=== PATIENT | male | born 1975 | race Two or more races ===

== ENCOUNTER 2025-04-26 21:40 | Emergency (ER) | payer SELFPAY ==
--- NOTE | ~2025-04-26 | XR_ITS ---
CLINICAL HISTORY: severe pain in right knee 4 view right knee Comparison: None provided Findings: No fractures or dislocations. No significant loss of joint space, osteophytes, or erosions. No joint effusion. No radiopaque foreign body. IMPRESSION: 1. No acute findings. This document has been electronically signed by: Ronaldo Macedo MD on 04/26/2025 22:59:08
[2025-04-26 21:43] VITALS: BP 197/116; PULSE 60; RESP 18; TEMP 37; O2SAT 98; BMI 64.9
[2025-04-26 22:19] VITALS: BP 179/96; PULSE 65; RESP 20; TEMP 37; O2SAT 97
--- NOTE | 2025-04-27 01:37 | ED_ITS ---
HPI - General Adult General Chief complaint: Extremity Problem Stated complaint: right knee pain Time Seen by Provider: 04/26/25 23:22 Source: patient Limitations: no limitations History of Present Illness ED Provider: Lisbet Gardner PA-C HPI narrative: 49-year-old male presents with acute on chronic right knee pain. Patient states he has been having worsening progressive pain over medial knee over the past se veral weeks. Denies inability to flex and extend, denies preceding trauma or overuse injury, no overlying redness warmth, swelling or fevers. Related Data Previous Rx's ?Medication ?Instructions ?Recorded meloxicam 15 mg tablet 15 mg PO DAILY #7 tabs 04/27 Allergies Allergy/AdvReac Type Severity Reaction Status Date / Time Penicillins AdvReac Rash Verified 04/26/25 21:43 Review of Systems Review of Systems: Yes all other systems are reviewed and are negative Constitutional: Constitutional: Denies fatigue and Denies fever(s) Musculoskeletal: Musculoskeletal: Denies arthralgias and Denies joint swelling Integumentary/Breasts: Skin/Breast: Denies erythema and Denies wounds Endocrine: Endocrine: Denies fatigue [facility] Past Medical History Attestation statement: The following information was validated with the patient. Social History Social History Unable to assess alcohol history related to: Unknown Use of substances other than those prescribed or required for medical reasons: Unknown Advance Directives: No Advance Directives Information Provided: Yes Physical Exam ED Vital Signs: Vital Signs - 24 hr 04/26/25 21:43 04/26/25 22:19 Temperature 98.6 F 98.6 F Pulse Rate 60 65 Respiratory Rate 18 20 Blood Pressure 197/116 H 179/96 H Pulse Oximetry 98 97 Oxygen Delivery Method Room Air Room Air BMI result Body Mass Index 64.9 Const Other: Alert Orientation/consciousness: patient oriented x3 Resp Effort & Inspection: normal respiratory effort Cardio Other: Normal peripheral perfusion Skin Other: Warm dry no rash Neuro General: patient oriented x3, gait normal, no focal motor deficits and CN's II- XI intact bilaterally Extrem Other: Patient ambulatory, he is able to flex and extend from the right knee there was no overlying erythema warmth or redness no swelling Psych Other: Cooperative Medications Administered Discontinued Medications Generic Name Dose Route Start Last Admin Trade Name Freq PRN Reason Stop Dose Admin Ketorolac Tromethamine 15 mg 04/27/25 00:48 04/27/25 00:55 Ketorolac Tromethamine 15 Mg/Ml Vial IM 04/27/25 00:49 15 mg ONCE ONE Administration Medical Decision Making Medical Decision Making MDM Narrative: 49-year-old male with a history of morbid obesity presents with acute on chronic right knee pain. Patient states he has been having worsening progressive pain over medial knee over the past several weeks. Denies inability to flex and extend, denies preceding trauma or overuse injury, no overlying redness warmth, swelling or fevers. Problem: Morbid obesity History: Per patient I have considered the following differential diagnoses: Arthritis, septic joint, gout, fracture, dislocation Plan: X-ray obtained from triage is unremarkable, there were no exam findings concerning for septic joint or gout. We will send with orthopedic consult. Patient states he has injured the same knee numerous times throughout the years. I have independently reviewed the following tests: X-ray right knee:Findings: No fractures or dislocations. No significant loss of joint space, osteophytes, or erosions. No joint effusion. No radiopaque foreign body. IMPRESSION: 1. No acute findings. Discharge Plan Discharge Clinical Impression: Chronic pain of right knee Patient Disposition: Home, Self-Care Instructions: Knee Pain (ED) Additional Instructions: The x-ray of the knee was unremarkable. I am providing you with a contact for our orthopedic service given your ongoing acute on chronic knee pain. Take the meloxicam as directed this is an anti-inflammatory, take it with food. Prescriptions: New meloxicam 15 mg tablet 15 mg PO DAILY Qty: 7 0RF Referrals: David Cristobal MD [Physician, Orthopedics] Referral Note: acute on chronic right knee pain Stand Alone Forms: Work/School Release Print Language: Mongolian
[2025-04-27 01:55] VITALS: BP 179/96; PULSE 65; RESP 20; TEMP 37; O2SAT 97
== END 2025-04-27 01:55 | disposition home or self-care (01) ==
PROVIDERS: Emergency Provider Emergency Medicine
DX: M25.561 Pain in right knee (principal); E66.01 Morbid (severe) obesity due to excess calories; Z68.44 Body mass index [BMI] 60.0-69.9, adult
CPT/HCPCS: 73562; 96372; 99284; J1885

== ENCOUNTER → 2025-04-26 21:50 | Outpatient (BNV) | payer SELFPAY | PROVIDERS: Visit Provider Specialist | DX: M25.561 Pain in right knee (principal) | CPT/HCPCS: 73562 ==